=== PATIENT | female | born 1955 | race Caucasian/White ===

== ENCOUNTER 2023-01-20 16:00 | Inpatient (IN) | payer MEDICARE, OTHER ==
[~2023-01-20] VITALS: Ht 170.2 cm; Wt 63.5 kg
[2023-01-20 17:35] LABS: BASOPHILS % (AUTO) 0.6 % (0.0-2.0); EOSINOPHILS # (AUTO) 0.4 K/uL (0.0-0.7); EOSINOPHILS % (AUTO) 7.6 % (0.0-6.0); HEMATOCRIT 31 % (33-45); LYMPHOCYTES # (AUTO) 1.4 K/uL (0.8-4.8); LYMPHOCYTES % (AUTO) 26.3 % (20.0-44.0); MEAN CORPUSCULAR HEMOGLOBIN 31 PG (26.0-33.0); MEAN CORPUSCULAR HGB CONC 33 g/dl (31.0-36.0); MEAN CORPUSCULAR VOLUME 94 fL (82-100); MONOCYTES # (AUTO) 0.4 K/uL (0.1-1.30); MONOCYTES % (AUTO) 7.7 % (2.0-12.0); NEUTROPHILS # (AUTO) 3.1 K/uL (1.8-8.9); NEUTROPHILS % (AUTO) 57.8 % (43.0-81.0); PLATELET COUNT (AUTO) 270 K/uL (150-450); RED BLOOD CELL COUNT(AUTO) 3.26 MIL/uL (4.0-5.2); RED CELL DISTRIBUTION WIDTH 14.6 % (11.5-15.0); WHITE BLOOD COUNT (AUTO) 5.3 K/uL (4.3-11.0)
[2023-01-20 18:01] LABS: ALANINE AMINOTRANSFERASE 26 U/L (12-78); ALBUMIN 2.9 g/dL (3.4-5.0); ALCOHOL, BLOOD < 3 mg/dL (0-10); ALKALINE PHOSPHATASE 93 U/L (46-116); ASPARTATE AMINOTRANSFERASE 28 U/L (15-37); BILIRUBIN,TOTAL 0.1 mg/dL (0.2-1.0); CALCIUM, SERUM 9.2 mg/dL (8.5-10.1); CARBON DIOXIDE 30 mmol/L (21-32); CHLORIDE 101 mmol/L (98-107); CREATININE 0.8 mg/dL (0.6-1.3); GLUCOSE 91 mg/dL (74-106); POTASSIUM 4.2 mmol/L (3.5-5.1); SODIUM SERUM 137 mmol/L (136-145); TOTAL PROTEIN, SERUM 6.7 g/dL (6.4-8.2); UREA NITROGEN, BLOOD 27 mg/dL (7-18)
[2023-01-20 18:05] LABS: SALICYLATE 2.6 mg/dL (2.8-20.0)
[2023-01-20 18:06] LABS: ACETAMINOPHEN 0 ug/ml (10-30)
[2023-01-20 18:06] LABS: APPEARANCE,URINE CLEAR (CLEAR); BILIRUBIN,URINE NEGATIVE (NEGATIVE); BLOOD, URINE NEGATIVE Ery/uL (NEGATIVE); COLOR,URINE YELLOW (YELLOW); KETONES,URINE NEGATIVE (NEGATIVE); LEUKOCYTE ESTERASE ,URINE NEGATIVE (NEGATIVE); NITRITE, URINE NEGATIVE (NEGATIVE); PROTEIN,URINE NEGATIVE (NEGATIVE); UGLUCOSE NEGATIVE (NEGATIVE); UROBILINOGEN,URINE 0.2 EU/dL (0.2)
[2023-01-20 18:38] LABS: AMPHETAMINE, URINE NEGATIVE (NEGATIVE); BARBITURATE, URINE NEGATIVE (NEGATIVE); BENZODIAZEPINE, URINE NEGATIVE (NEGATIVE); CANNABINOID, URINE NEGATIVE (NEGATIVE); COCCAINE, URINE NEGATIVE (NEGATIVE); OPIATE, URINE NEGATIVE (NEGATIVE); PHENCYCLIDINE SCREEN,URINE NEGATIVE (NEGATIVE)
[2023-01-20] MEDS ORDERED: OLANZAPINE 5 MG TABLET ONE (21:40)
[2023-01-20] MEDS ORDERED: OLANZAPINE ZYDIS 5 MG TAB.RAPDIS PO ONE (22:00)
[2023-01-21] MEDS ORDERED: MAG HYDROX/AL HYDROX/SIMETH 30 ML UDC PO PRN
[2023-01-21] MEDS ORDERED: BLOOD SUGAR DIAGNOSTIC 1 EACH STRIP IN ONE
[2023-01-21] MEDS ORDERED: MAGNESIUM HYDROXIDE 30 ML UDC PO PRN
[2023-01-21 00:35] VITALS: BP 119/76; TEMP 98; O2SAT 98
[2023-01-21] MEDS ORDERED: MIRT-90 PO (01:42)
[2023-01-21] MEDS ORDERED: ASPI-1169 PO (01:42)
[2023-01-21] MEDS ORDERED: PANT40TA49 PO (01:42)
[2023-01-21] MEDS ORDERED: POLY15DR31 EACHEYE (01:42)
[2023-01-21] MEDS ORDERED: QUET50TA PO (01:42)
[2023-01-21] MEDS ORDERED: ATOR10TA PO (01:42)
[2023-01-21] MEDS ORDERED: TEMA15CA5 PO (01:42)
[2023-01-21] MEDS ORDERED: MULT-594 PO (01:42)
[2023-01-21 08:00] VITALS: BP 110/64; TEMP 97.8; O2SAT 97
[2023-01-21] MEDS ORDERED: CYAN-51 PO (08:00)
[2023-01-21] MEDS ORDERED: LORA-259 PO (08:00)
[2023-01-21 08:12] LABS: CHOLESTEROL 144 mg/dL (<200); HDL CHOLESTEROL 64 mg/dL (40-60); LDL 70 mg/dL (0-99); TRIGLYCERIDES 28 mg/dL (30-150)
[2023-01-21 08:17] LABS: ALBUMIN 2.6 g/dL (3.4-5.0); BILIRUBIN,TOTAL 0.2 mg/dL (0.2-1.0); CALCIUM, SERUM 8.9 mg/dL (8.5-10.1); CREATININE 0.7 mg/dL (0.6-1.3); POTASSIUM 3.7 mmol/L (3.5-5.1); TOTAL PROTEIN, SERUM 6.2 g/dL (6.4-8.2)
[2023-01-21] MEDS: QUETIAPINE FUMARATE 100 MG TABLET PO SCH ×2 (08:37→17:25)
[2023-01-21] MEDS: clonazePAM 0.5 MG TABLET PO PRN (12:30)
[2023-01-21 16:00] VITALS: BP 103/69; TEMP 98.1; O2SAT 98
[2023-01-21] MEDS: oxyCODONE IR immediate release 5 MG PO PRN (18:58)
[2023-01-21 20:11] VITALS: BP 100/62; TEMP 98.8; O2SAT 97
[2023-01-21] MEDS: MIRTAZAPINE 15 MG TABLET PO SCH (21:28)
[2023-01-21] MEDS: TEMAZEPAM 7.5 MG CAPSULE PO PRN (21:56)
[2023-01-22] MEDS: PANTOPRAZOLE 40 MG TABLET.DR PO SCH (07:50)
[2023-01-22 08:00] VITALS: BP 125/76; TEMP 98; O2SAT 97
[2023-01-22] MEDS: MULTIVITAMINS,THERAGRAN 1 UDTAB TABLET PO SCH (08:25)
[2023-01-22] MEDS: CYANOCOBALAMIN 500 MCG TABLET PO SCH (08:26)
[2023-01-22] MEDS: QUETIAPINE FUMARATE 100 MG TABLET PO SCH ×2 (08:26→16:23)
[2023-01-22] MEDS: ASPIRIN 81 MG TAB.CHEW PO SCH (08:26)
[2023-01-22] MEDS: POLYVINYL ALCOHOL 15 ML BOTTLE EACHEYE SCH (08:47)
[2023-01-22] MEDS: ATORVASTATIN 10 MG TABLET PO SCH (08:52)
[2023-01-22 16:00] VITALS: BP 100/68; TEMP 97.9; O2SAT 98
[2023-01-22] MEDS: oxyCODONE IR immediate release 5 MG PO PRN (19:39)
[2023-01-22 20:44] VITALS: BP 101/68; TEMP 98.2; O2SAT 100
[2023-01-22] MEDS: MIRTAZAPINE 15 MG TABLET PO SCH (21:24)
[2023-01-23 08:00] VITALS: BP 104/70; TEMP 98; O2SAT 100
[2023-01-23] MEDS: ATORVASTATIN 10 MG TABLET PO SCH (08:40)
[2023-01-23] MEDS: QUETIAPINE FUMARATE 100 MG TABLET PO SCH ×2 (08:40→16:05)
[2023-01-23] MEDS: MULTIVITAMINS,THERAGRAN 1 UDTAB TABLET PO SCH (08:40)
[2023-01-23] MEDS: ASPIRIN 81 MG TAB.CHEW PO SCH (08:40)
[2023-01-23] MEDS: PANTOPRAZOLE 40 MG TABLET.DR PO SCH (08:40)
[2023-01-23] MEDS: CYANOCOBALAMIN 500 MCG TABLET PO SCH (08:41)
[2023-01-23] MEDS: POLYVINYL ALCOHOL 15 ML BOTTLE EACHEYE SCH ×2 (08:41→08:49)
[2023-01-23 16:00] VITALS: BP 109/66; TEMP 98.1; O2SAT 98
[2023-01-23] MEDS ORDERED: HALOPERIDOL LACTATE INJ 5 MG/ML VIAL IM ONE (18:00)
[2023-01-23] MEDS ORDERED: LORAZEPAM INJ 2 MG/ML VIAL IV ONE (18:00)
[2023-01-23] MEDS ORDERED: diphenhydrAMINE HCL 50 MG/ML VIAL IV ONE (18:00)
[2023-01-23] MEDS: MIRTAZAPINE 15 MG TABLET PO SCH (21:14)
[2023-01-23] MEDS: TEMAZEPAM 7.5 MG CAPSULE PO PRN (21:50)
[2023-01-24 08:00] VITALS: BP 118/71; TEMP 97.8; O2SAT 95
[2023-01-24] MEDS: PANTOPRAZOLE 40 MG TABLET.DR PO SCH (08:00)
[2023-01-24] MEDS: NICOTINE PATCH (14MG) 14 MG PATCH.TD24 TD SCH (08:47)
[2023-01-24] MEDS: ATORVASTATIN 10 MG TABLET PO SCH (08:47)
[2023-01-24] MEDS: ASPIRIN 81 MG TAB.CHEW PO SCH (08:47)
[2023-01-24] MEDS: CYANOCOBALAMIN 500 MCG TABLET PO SCH (08:47)
[2023-01-24] MEDS: QUETIAPINE FUMARATE 100 MG TABLET PO SCH ×2 (08:47→16:31)
[2023-01-24] MEDS: MULTIVITAMINS,THERAGRAN 1 UDTAB TABLET PO SCH (08:48)
[2023-01-24] MEDS: POLYVINYL ALCOHOL 15 ML BOTTLE EACHEYE SCH (08:49)
[2023-01-24] MEDS: oxyCODONE IR immediate release 5 MG PO PRN ×2 (08:55→18:53)
[2023-01-24] MEDS: NEOMY SULF/BACITRAC ZN/POLY 15 GM TUBE TP SCH (11:24)
[2023-01-24] MEDS: ACETAMINOPHEN 325 MG TABLET PO PRN (14:39)
[2023-01-24 16:07] VITALS: BP 95/64; TEMP 97.8; O2SAT 96
[2023-01-24] MEDS: TEMAZEPAM 7.5 MG CAPSULE PO PRN (21:32)
[2023-01-24] MEDS: MIRTAZAPINE 15 MG TABLET PO SCH (21:32)
[2023-01-24 21:35] VITALS: BP 90/58; TEMP 98.2; O2SAT 96
[2023-01-25 08:00] VITALS: BP 110/69; TEMP 97.9; O2SAT 100
[2023-01-25] MEDS: NICOTINE PATCH (14MG) 14 MG PATCH.TD24 TD SCH (09:00)
[2023-01-25] MEDS: ATORVASTATIN 10 MG TABLET PO SCH (09:25)
[2023-01-25] MEDS: MULTIVITAMINS,THERAGRAN 1 UDTAB TABLET PO SCH (09:25)
[2023-01-25] MEDS: oxyCODONE IR immediate release 5 MG PO PRN ×2 (09:25→20:20)
[2023-01-25] MEDS: ASPIRIN 81 MG TAB.CHEW PO SCH (09:25)
[2023-01-25] MEDS: PANTOPRAZOLE 40 MG TABLET.DR PO SCH (09:25)
[2023-01-25] MEDS: CYANOCOBALAMIN 500 MCG TABLET PO SCH (09:26)
[2023-01-25] MEDS: QUETIAPINE FUMARATE 100 MG TABLET PO SCH ×2 (09:26→17:35)
[2023-01-25] MEDS: POLYVINYL ALCOHOL 15 ML BOTTLE EACHEYE SCH (09:29)
[2023-01-25] MEDS: NEOMY SULF/BACITRAC ZN/POLY 15 GM TUBE TP SCH (09:37)
[2023-01-25] MEDS: clonazePAM 0.5 MG TABLET PO PRN (11:57)
[2023-01-25 16:00] VITALS: BP 106/69; TEMP 97.8; O2SAT 98
[2023-01-25 20:23] VITALS: BP 104/65; TEMP 99; O2SAT 97
[2023-01-25 20:34] VITALS: BP 123/65; TEMP 98.4; O2SAT 96
[2023-01-25] MEDS: MIRTAZAPINE 15 MG TABLET PO SCH (21:08)
[2023-01-26] MEDS: TEMAZEPAM 7.5 MG CAPSULE PO PRN (01:46)
[2023-01-26] MEDS: PANTOPRAZOLE 40 MG TABLET.DR PO SCH (07:46)
[2023-01-26 08:00] VITALS: BP 106/59; TEMP 97.9; O2SAT 100
[2023-01-26] MEDS: NICOTINE PATCH (14MG) 14 MG PATCH.TD24 TD SCH (09:00)
[2023-01-26] MEDS: NEOMY SULF/BACITRAC ZN/POLY 15 GM TUBE TP SCH ×2 (09:00→09:20)
[2023-01-26] MEDS: POLYVINYL ALCOHOL 15 ML BOTTLE EACHEYE SCH ×2 (09:00→09:19)
[2023-01-26] MEDS: QUETIAPINE FUMARATE 100 MG TABLET PO SCH ×2 (09:15→17:42)
[2023-01-26] MEDS: ASPIRIN 81 MG TAB.CHEW PO SCH (09:15)
[2023-01-26] MEDS: CYANOCOBALAMIN 500 MCG TABLET PO SCH (09:15)
[2023-01-26] MEDS: MULTIVITAMINS,THERAGRAN 1 UDTAB TABLET PO SCH (09:16)
[2023-01-26] MEDS: ATORVASTATIN 10 MG TABLET PO SCH (09:16)
[2023-01-26 20:00] VITALS: BP 122/70; TEMP 98.1; O2SAT 98
[2023-01-26] MEDS: MIRTAZAPINE 15 MG TABLET PO SCH (21:42)
[2023-01-27] MEDS: PANTOPRAZOLE 40 MG TABLET.DR PO SCH (07:50)
[2023-01-27 08:00] VITALS: BP 109/69; TEMP 97.8; O2SAT 98
[2023-01-27] MEDS: NICOTINE PATCH (14MG) 14 MG PATCH.TD24 TD SCH (08:57)
[2023-01-27] MEDS: ATORVASTATIN 10 MG TABLET PO SCH (08:57)
[2023-01-27] MEDS: MULTIVITAMINS,THERAGRAN 1 UDTAB TABLET PO SCH (08:57)
[2023-01-27] MEDS: QUETIAPINE FUMARATE 100 MG TABLET PO SCH ×4 (08:57→17:54)
[2023-01-27] MEDS: NEOMY SULF/BACITRAC ZN/POLY 15 GM TUBE TP SCH (08:57)
[2023-01-27] MEDS: ASPIRIN 81 MG TAB.CHEW PO SCH (08:57)
[2023-01-27] MEDS: CYANOCOBALAMIN 500 MCG TABLET PO SCH (08:57)
[2023-01-27] MEDS: POLYVINYL ALCOHOL 15 ML BOTTLE EACHEYE SCH (08:57)
[2023-01-27 16:00] VITALS: BP 105/63; TEMP 98; O2SAT 99
[2023-01-27] MEDS: ACETAMINOPHEN 325 MG TABLET PO PRN (16:15)
[2023-01-27 20:00] VITALS: BP 96/63; TEMP 97.9; O2SAT 96
[2023-01-27] MEDS: MIRTAZAPINE 15 MG TABLET PO SCH (21:43)
[2023-01-28 08:00] VITALS: BP 107/70; TEMP 97.7; O2SAT 100
[2023-01-28] MEDS: ATORVASTATIN 10 MG TABLET PO SCH (08:39)
[2023-01-28] MEDS: PANTOPRAZOLE 40 MG TABLET.DR PO SCH (08:39)
[2023-01-28] MEDS: ENSURE ENLIVE 237 ML LIQUID (VANILLA) PO SCH (08:39)
[2023-01-28] MEDS: CYANOCOBALAMIN 500 MCG TABLET PO SCH (08:39)
[2023-01-28] MEDS: NICOTINE PATCH (14MG) 14 MG PATCH.TD24 TD SCH (08:39)
[2023-01-28] MEDS: ASPIRIN 81 MG TAB.CHEW PO SCH (08:39)
[2023-01-28] MEDS: MULTIVITAMINS,THERAGRAN 1 UDTAB TABLET PO SCH (08:39)
[2023-01-28] MEDS: QUETIAPINE FUMARATE 100 MG TABLET PO SCH ×3 (08:39→16:26)
[2023-01-28] MEDS: NEOMY SULF/BACITRAC ZN/POLY 15 GM TUBE TP SCH (08:40)
[2023-01-28] MEDS: POLYVINYL ALCOHOL 15 ML BOTTLE EACHEYE SCH (08:40)
[2023-01-28] MEDS: oxyCODONE IR immediate release 5 MG PO PRN (08:44)
[2023-01-28 16:00] VITALS: BP 106/67; TEMP 98; O2SAT 98
[2023-01-28 20:00] VITALS: BP 103/72; TEMP 97.5; O2SAT 95
[2023-01-28] MEDS: MIRTAZAPINE 15 MG TABLET PO SCH (21:41)
[2023-01-29 08:00] VITALS: BP 115/58; TEMP 98.1; O2SAT 97
[2023-01-29] MEDS: PANTOPRAZOLE 40 MG TABLET.DR PO SCH (08:22)
[2023-01-29] MEDS: ENSURE ENLIVE 237 ML LIQUID (VANILLA) PO SCH (08:22)
[2023-01-29] MEDS: CYANOCOBALAMIN 500 MCG TABLET PO SCH (08:22)
[2023-01-29] MEDS: ASPIRIN 81 MG TAB.CHEW PO SCH (08:22)
[2023-01-29] MEDS: ATORVASTATIN 10 MG TABLET PO SCH (08:23)
[2023-01-29] MEDS: MULTIVITAMINS,THERAGRAN 1 UDTAB TABLET PO SCH (08:23)
[2023-01-29] MEDS: NICOTINE PATCH (14MG) 14 MG PATCH.TD24 TD SCH ×2 (08:23→09:00)
[2023-01-29] MEDS: QUETIAPINE FUMARATE 100 MG TABLET PO SCH ×3 (08:23→16:33)
[2023-01-29] MEDS: NEOMY SULF/BACITRAC ZN/POLY 15 GM TUBE TP SCH ×2 (09:00→09:17)
[2023-01-29] MEDS: POLYVINYL ALCOHOL 15 ML BOTTLE EACHEYE SCH ×2 (09:00→09:16)
[2023-01-29 16:00] VITALS: BP 102/61; TEMP 98.3; O2SAT 100
[2023-01-29 20:33] VITALS: BP 107/61; TEMP 98.6; O2SAT 100
[2023-01-29] MEDS: MIRTAZAPINE 15 MG TABLET PO SCH (21:08)
[2023-01-29] MEDS: oxyCODONE IR immediate release 5 MG PO PRN (21:10)
[2023-01-29] MEDS: TEMAZEPAM 7.5 MG CAPSULE PO PRN (23:06)
[2023-01-30 08:00] VITALS: BP 110/71; TEMP 97.9; O2SAT 98
[2023-01-30] MEDS: ENSURE ENLIVE 237 ML LIQUID (VANILLA) PO SCH (08:20)
[2023-01-30] MEDS: PANTOPRAZOLE 40 MG TABLET.DR PO SCH (08:20)
[2023-01-30] MEDS: ASPIRIN 81 MG TAB.CHEW PO SCH (08:32)
[2023-01-30] MEDS: NEOMY SULF/BACITRAC ZN/POLY 15 GM TUBE TP SCH (08:32)
[2023-01-30] MEDS: CYANOCOBALAMIN 500 MCG TABLET PO SCH (08:32)
[2023-01-30] MEDS: MULTIVITAMINS,THERAGRAN 1 UDTAB TABLET PO SCH (08:32)
[2023-01-30] MEDS: QUETIAPINE FUMARATE 100 MG TABLET PO SCH ×2 (08:32→13:57)
[2023-01-30] MEDS: NICOTINE PATCH (14MG) 14 MG PATCH.TD24 TD SCH (08:32)
[2023-01-30] MEDS: ATORVASTATIN 10 MG TABLET PO SCH (08:32)
[2023-01-30] MEDS: POLYVINYL ALCOHOL 15 ML BOTTLE EACHEYE SCH (08:33)
[2023-01-30] MEDS: oxyCODONE IR immediate release 5 MG PO PRN (10:15)
== END 2023-01-30 14:30 | DRG 885 ==
LOC: ER 16:00 → GPS 22:33 → UNDODISIN 01-26 14:43
PROVIDERS: ADMIT Psychiatry & Neurology Psychiatry; ATTEND Nurse Practitioner Acute Care
DX: F39 Unspecified mood [affective] disorder (principal); E44.0 Moderate protein-calorie malnutrition; F29 Unspecified psychosis not due to a substance or known physiological condition; D64.9 Anemia, unspecified; E78.5 Hyperlipidemia, unspecified; E88.09 Other disorders of plasma-protein metabolism, not elsewhere classified; F20.9 Schizophrenia, unspecified; I10 Essential (primary) hypertension; F41.9 Anxiety disorder, unspecified; F31.9 Bipolar disorder, unspecified; Z79.899 Other long term (current) drug therapy; Z20.822 Contact with and (suspected) exposure to COVID-19; Z73.6 Limitation of activities due to disability; Z68.21 Body mass index [BMI] 21.0-21.9, adult; M25.571 Pain in right ankle and joints of right foot; Z59.00 Homelessness unspecified
CPT/HCPCS: 36415; 73610-TC; 80048-TC; 80053-TC; 80061-TC; 80076-TC; 82962-TC; 85025-TC; 87081-TC; 97112-TC; 97116-TC; 97530-TC; C9803; G0480

== ENCOUNTER 2024-11-07 13:26 | Inpatient (IN) | payer MEDICARE, OTHER ==
[~2024-11-07] VITALS: Ht 157.5 cm; Wt 74.8 kg
[~2024-11-07 13:26] MED LIST: ASPI-1169 PO; ATOR10TA PO; CYAN-51 PO; LORA-259 PO; MIRT-90 PO; MULT-594 PO; PANT40TA49 PO; POLY15DR31 EACHEYE; QUET50TA PO; TEMA15CA5 PO
[2024-11-07 14:05] LABS: PLATELET COUNT (AUTO) 240 K/uL (150-450); RED BLOOD CELL COUNT(AUTO) 3.95 MIL/uL (4.0-5.2); RED CELL DISTRIBUTION WIDTH 17.8 % (11.5-15.0); WHITE BLOOD COUNT (AUTO) 10.6 K/uL (4.3-11.0)
[2024-11-07 14:10] LABS: CALCIUM, SERUM 8.8 mg/dL (8.5-10.1); CREATININE 0.9 mg/dL (0.6-1.3); SODIUM SERUM 131 mmol/L (136-145); UREA NITROGEN, BLOOD 14 mg/dL (7-18)
[2024-11-07 14:15] LABS: ALCOHOL, BLOOD < 3 mg/dL (0-10); ASPARTATE AMINOTRANSFERASE 13 U/L (15-37); TOTAL PROTEIN, SERUM 7.1 g/dL (6.4-8.2)
[2024-11-07 14:22] LABS: APPEARANCE,URINE CLEAR (CLEAR); BLOOD, URINE NEGATIVE Ery/uL (NEGATIVE); LEUKOCYTE ESTERASE ,URINE NEGATIVE (NEGATIVE); NITRITE, URINE NEGATIVE (NEGATIVE); UGLUCOSE NEGATIVE (NEGATIVE)
[2024-11-07 14:28] LABS: AMPHETAMINE, URINE NEGATIVE (NEGATIVE); BARBITURATE, URINE NEGATIVE (NEGATIVE); BENZODIAZEPINE, URINE NEGATIVE (NEGATIVE); CANNABINOID, URINE NEGATIVE (NEGATIVE); COCCAINE, URINE NEGATIVE (NEGATIVE); OPIATE, URINE NEGATIVE (NEGATIVE)
[2024-11-07] MEDS ORDERED: SENN8.6T19 PO (14:37)
[2024-11-07] MEDS ORDERED: PANT40TA2 PO (14:37)
[2024-11-07] MEDS ORDERED: ACET-868 PO (14:37)
[2024-11-07] MEDS ORDERED: OLAN20TA3 PO (14:37)
[2024-11-07] MEDS ORDERED: POLY17PO4 PO (14:37)
[2024-11-07] MEDS ORDERED: NA P133E RC (14:37)
[2024-11-07] MEDS ORDERED: ATOR40TA PO (14:37)
[2024-11-07] MEDS ORDERED: MULT-225 PO (14:37)
[2024-11-07] MEDS ORDERED: LORA-258 PO (14:37)
[2024-11-07] MEDS ORDERED: DOCU100C36 PO (14:37)
[2024-11-07] MEDS ORDERED: BISA10SU11 RC (14:37)
[2024-11-07] MEDS ORDERED: MAGN400O6 PO (14:37)
[2024-11-07] MEDS ORDERED: DIVA-76 PO (14:37)
[2024-11-07] MEDS ORDERED: SERT25TA PO (14:37)
[2024-11-07] MEDS ORDERED: MAGNESIUM HYDROXIDE 30 ML UDC PO PRN ×2 (15:00→17:30)
[2024-11-07] MEDS ORDERED: ZOLPIDEM TARTRATE 5 MG TABLET PO PRN (15:00)
[2024-11-07] MEDS ORDERED: QUETIAPINE FUMARATE 25 MG TABLET PO PRN (15:00)
[2024-11-07] MEDS: BLOOD SUGAR DIAGNOSTIC 1 EACH STRIP IN ONE (15:31)
[2024-11-07 16:00] VITALS: BP 123/78; TEMP 98.1; O2SAT 94
[2024-11-07 16:21] LABS: BASOPHILS % (MANUAL) 0 % (0.0-2.0); EOSINOPHILS % (MANUAL) 1 % (0-4); LYMPHOCYTES % (MANUAL) 20 % (16-48); MONOCYTES % (MANUAL) 4 % (0-11.0); NEUTROPHILS % (MANUAL) 75 (42-76); PLATELET ESTIMATE ADEQUATE
[2024-11-07] MEDS ORDERED: NA PHOS,M-B/NA PHOS,DI-BA 1 EA ENEMA RC PRN (17:30)
[2024-11-07] MEDS ORDERED: ACETAMINOPHEN 325 MG TABLET PO PRN (17:30)
[2024-11-07] MEDS ORDERED: BISACODYL SUPP (10 MG) 10 MG/SUPP.RECT SUPP.RECT RC PRN (17:30)
[2024-11-07 20:08] VITALS: BP 93/55; TEMP 98.4; O2SAT 96
[2024-11-07] MEDS: ACETAMINOPHEN 325 MG TABLET PO PRN (20:13)
[2024-11-07] MEDS: ATORVASTATIN 40 MG TABLET PO SCH (21:05)
[2024-11-08 08:00] VITALS: BP 100/65; TEMP 98; O2SAT 98
[2024-11-08 08:28] LABS: LDL 83 mg/dL (0-99)
[2024-11-08 08:36] LABS: ASPARTATE AMINOTRANSFERASE 13.0 U/L (15-37); CALCIUM, SERUM 9.6 mg/dL (8.5-10.1); CREATININE 0.6 mg/dL (0.6-1.3); SODIUM SERUM 138.0 mmol/L (136-145); TOTAL PROTEIN, SERUM 7.3 g/dL (6.4-8.2); UREA NITROGEN, BLOOD 21.0 mg/dL (7-18)
[2024-11-08] MEDS: DOCUSATE SODIUM 100 MG CAPSULE PO SCH (09:34)
[2024-11-08] MEDS: MULTIVITAMINS,THERAGRAN 1 UDTAB TABLET PO SCH (09:34)
[2024-11-08] MEDS: SENNOSIDES 8.6 MG TABLET PO SCH (09:35)
[2024-11-08] MEDS: PANTOPRAZOLE 40 MG TABLET.DR PO SCH (09:35)
[2024-11-08] MEDS: MAG HYDROX/AL HYDROX/SIMETH 30 ML UDC PO PRN (11:24)
[2024-11-08 16:00] VITALS: BP 110/74; TEMP 98.2; O2SAT 94
[2024-11-08 20:47] VITALS: BP 114/73; TEMP 98.2; O2SAT 96
[2024-11-08] MEDS: LITHIUM CARBONATE 150 MG CAPSULE PO SCH (21:08)
[2024-11-08] MEDS: OLANZAPINE 5 MG TABLET PO SCH (21:08)
[2024-11-09 08:00] VITALS: BP 124/78; TEMP 97.9; O2SAT 96
[2024-11-09] MEDS: POLYETHYLENE GLYCOL 3350 17 GM POWD.PACK PO PRN (09:20)
[2024-11-09 16:00] VITALS: BP 93/65; TEMP 98; O2SAT 94
[2024-11-09 21:08] VITALS: BP 116/70; TEMP 98; O2SAT 95
[2024-11-10 08:00] VITALS: BP 97/62; TEMP 97.9; O2SAT 95
[2024-11-10 16:00] VITALS: BP 105/70; TEMP 97.9; O2SAT 93
[2024-11-10 20:38] VITALS: BP 111/64; TEMP 97.7; O2SAT 95
[2024-11-11 08:00] VITALS: BP 97/63; TEMP 97.9; O2SAT 97
[2024-11-11 16:00] VITALS: BP 122/69; TEMP 97.9; O2SAT 96
[2024-11-11] MEDS: BACITRACIN ZINC OINT (15 GM) 15 GM TUBE TP SCH (17:20)
[2024-11-11 20:00] VITALS: BP 103/67; TEMP 97.9; O2SAT 97
[2024-11-11 20:13] VITALS: BP 103/67; TEMP 97.9; O2SAT 97
[2024-11-11] MEDS: OLANZAPINE 5 MG TABLET PO SCH (20:40)
[2024-11-12 08:00] VITALS: BP 110/67; TEMP 97.9; O2SAT 94
[2024-11-12 16:00] VITALS: BP 109/77; TEMP 98.2; O2SAT 94
[2024-11-12 20:00] VITALS: BP 95/67; TEMP 97.7; O2SAT 97
[2024-11-12] MEDS: LITHIUM CARBONATE 150 MG CAPSULE PO SCH (20:06)
[2024-11-12 20:27] VITALS: BP 95/67; TEMP 97.7; O2SAT 97
[2024-11-13 08:00] VITALS: BP 111/84; TEMP 98.7; O2SAT 98
[2024-11-13] MEDS: DICLOFENAC TOPICAL 100 GM TUBE TP PRN (13:30)
[2024-11-13 16:00] VITALS: BP 103/56; TEMP 98.6; O2SAT 97
[2024-11-13] MEDS ORDERED: TRAMADOL HCL 50 MG TABLET PO PRN (17:30)
[2024-11-13 20:18] VITALS: BP 130/63; TEMP 98.5; O2SAT 97
[2024-11-14 08:00] VITALS: BP 111/69; TEMP 98.2; O2SAT 93
[2024-11-14 16:00] VITALS: BP 95/62; TEMP 97.7; O2SAT 92
[2024-11-14] MEDS: OLANZAPINE 5 MG TABLET PO SCH (20:41)
[2024-11-14 21:00] VITALS: BP 112/67; TEMP 98; O2SAT 97
[2024-11-15 08:00] VITALS: BP 106/66; TEMP 98.1; O2SAT 95
[2024-11-15 16:05] VITALS: BP 110/66; TEMP 97.8; O2SAT 93
[2024-11-15 21:16] VITALS: BP 106/68; TEMP 98.1; O2SAT 96
[2024-11-16 08:17] VITALS: BP 116/88; TEMP 97.8; O2SAT 97
[2024-11-16 16:05] VITALS: BP 95/71; TEMP 98.2; O2SAT 97
[2024-11-16 21:06] VITALS: BP 110/65; TEMP 97.9; O2SAT 96
[2024-11-17 08:00] VITALS: BP 127/88; TEMP 98.1; O2SAT 98
[2024-11-17] MEDS: SIMETHICONE 80 MG TAB.CHEW PO PRN (13:58)
[2024-11-17] MEDS ORDERED: SIMETHICONE/SOD BICARB/CIT AC 1 EACH GRAN.EF.PK PO PRN (14:00)
[2024-11-17 16:00] VITALS: BP 106/68; TEMP 97.6; O2SAT 95
[2024-11-17 20:46] VITALS: BP 107/55; TEMP 98.6; O2SAT 96
[2024-11-18 07:39] LABS: PLATELET COUNT (AUTO) 322 K/uL (150-450); RED BLOOD CELL COUNT(AUTO) 3.98 MIL/uL (4.0-5.2); RED CELL DISTRIBUTION WIDTH 17.5 % (11.5-15.0); WHITE BLOOD COUNT (AUTO) 15.7 K/uL (4.3-11.0)
[2024-11-18 08:00] VITALS: BP 107/62; TEMP 98.6; O2SAT 92
[2024-11-18 08:03] LABS: ASPARTATE AMINOTRANSFERASE 12.0 U/L (15-37); CALCIUM, SERUM 9.3 mg/dL (8.5-10.1); CREATININE 0.8 mg/dL (0.6-1.3); PHOSPHORUS 3.5 mg/dL (2.5-4.9); SODIUM SERUM 142.0 mmol/L (136-145); TOTAL PROTEIN, SERUM 7.3 g/dL (6.4-8.2); UREA NITROGEN, BLOOD 23.0 mg/dL (7-18)
[2024-11-18 16:00] VITALS: BP 116/71; TEMP 98.1; O2SAT 95
[2024-11-18 20:01] VITALS: BP 104/64; TEMP 98; O2SAT 94
[2024-11-18] MEDS: LITHIUM CARBONATE 150 MG CAPSULE PO SCH (20:56)
[2024-11-19 07:04] LABS: APPEARANCE,URINE CLEAR (CLEAR); BLOOD, URINE TRACE-INTA Ery/uL (NEGATIVE); LEUKOCYTE ESTERASE ,URINE NEGATIVE (NEGATIVE); NITRITE, URINE NEGATIVE (NEGATIVE); UGLUCOSE NEGATIVE (NEGATIVE)
[2024-11-19 07:19] LABS: ADD URINE CULTURE NO
[2024-11-19 07:20] LABS: SQUAMOUS EPITHELIAL CELL,UR 0-2 /HPF (None Seen)
[2024-11-19 07:39] LABS: PLATELET COUNT (AUTO) 329 K/uL (150-450); RED BLOOD CELL COUNT(AUTO) 3.98 MIL/uL (4.0-5.2); RED CELL DISTRIBUTION WIDTH 17.7 % (11.5-15.0); WHITE BLOOD COUNT (AUTO) 10.6 K/uL (4.3-11.0)
[2024-11-19 08:00] VITALS: BP 108/78; TEMP 98; O2SAT 97
[2024-11-19 08:17] LABS: CALCIUM, SERUM 9.6 mg/dL (8.5-10.1); CREATININE 0.9 mg/dL (0.6-1.3); PHOSPHORUS 3.9 mg/dL (2.5-4.9); SODIUM SERUM 143.0 mmol/L (136-145); UREA NITROGEN, BLOOD 20.0 mg/dL (7-18)
[2024-11-19] MEDS: LITHIUM CARBONATE 150 MG CAPSULE PO SCH (08:42)
[2024-11-19 16:05] VITALS: BP 106/71; TEMP 98; O2SAT 98
[2024-11-19 20:23] VITALS: BP 115/70; TEMP 98.2; O2SAT 99
[2024-11-19 22:49] LABS: IRON, SERUM 21 ug/dl (50-175)
[2024-11-20 08:00] VITALS: BP 148/70; TEMP 98.2; O2SAT 99
[2024-11-20 16:00] VITALS: BP 97/67; TEMP 98.1; O2SAT 95
[2024-11-20 19:54] VITALS: BP 106/66; TEMP 97.9; O2SAT 96
[2024-11-21] MEDS: TEMAZEPAM 7.5 MG CAPSULE PO PRN (00:45)
[2024-11-21 08:00] VITALS: BP 106/70; TEMP 98.6; O2SAT 95
[2024-11-21 16:00] VITALS: BP 108/61; TEMP 98.2; O2SAT 96
== END 2024-11-21 17:15 | DRG 885 ==
LOC: ER 13:28 → GPS 14:46
PROVIDERS: ADMIT Psychiatry & Neurology Psychiatry; ATTEND Nurse Practitioner Acute Care
DX: F25.9 Schizoaffective disorder, unspecified (principal); E87.1 Hypo-osmolality and hyponatremia; E44.1 Mild protein-calorie malnutrition; D68.69 Other thrombophilia; F29 Unspecified psychosis not due to a substance or known physiological condition; F41.9 Anxiety disorder, unspecified; K21.9 Gastro-esophageal reflux disease without esophagitis; D50.9 Iron deficiency anemia, unspecified; E03.9 Hypothyroidism, unspecified; E78.5 Hyperlipidemia, unspecified; E88.09 Other disorders of plasma-protein metabolism, not elsewhere classified; F31.9 Bipolar disorder, unspecified; I10 Essential (primary) hypertension; Z87.891 Personal history of nicotine dependence; F10.21 Alcohol dependence, in remission; Z20.822 Contact with and (suspected) exposure to COVID-19; F39 Unspecified mood [affective] disorder; Z73.6 Limitation of activities due to disability; R73.9 Hyperglycemia, unspecified; E86.1 Hypovolemia; S01.20XA Unspecified open wound of nose, initial encounter; X58.XXXA Exposure to other specified factors, initial encounter; Y93.9 Activity, unspecified; Y92.129 Unspecified place in nursing home as the place of occurrence of the external cause; E66.9 Obesity, unspecified; Z68.30 Body mass index [BMI] 30.0-30.9, adult
CPT/HCPCS: 36415; 71045-TC; 73030-TC; 73560-TC; 80048-TC; 80053-TC; 80061-TC; 80076-TC; 80178-TC; 81001; 82728-TC; 82962-TC; 83540-TC; 83735-TC; 84100-TC; 85025-TC; 85027-TC; G0480

== ENCOUNTER 2024-12-20 19:45 | Emergency (ER) | payer MEDICARE, OTHER ==
[~2024-12-20] VITALS: Ht 170.2 cm; Wt 88.5 kg
[~2024-12-20 19:45] MED LIST changes: +ACET-868 PO; -ASPI-1169 PO; -ATOR10TA PO; +ATOR40TA PO; +BISA10SU11 RC; -CYAN-51 PO; +DOCU100C36 PO; -LORA-259 PO; +MAGN400O6 PO; -MIRT-90 PO; +MULT-225 PO; -MULT-594 PO; +NA P133E RC; +PANT40TA2 PO; -PANT40TA49 PO; -POLY15DR31 EACHEYE; +POLY17PO4 PO; -QUET50TA PO; +SENN8.6T19 PO; -TEMA15CA5 PO
[2024-12-20 19:48] VITALS: TEMP 98.2
[2024-12-20 20:36] LABS: PLATELET COUNT (AUTO) 335 K/uL (150-450); RED BLOOD CELL COUNT(AUTO) 3.32 MIL/uL (4.0-5.2); RED CELL DISTRIBUTION WIDTH 16.9 % (11.5-15.0); WHITE BLOOD COUNT (AUTO) 16.7 K/uL (4.3-11.0)
[2024-12-20 20:44] LABS: CALCIUM, SERUM 9.3 mg/dL (8.5-10.1); CREATININE 1.2 mg/dL (0.6-1.3); SODIUM SERUM 139.0 mmol/L (136-145); UREA NITROGEN, BLOOD 16.0 mg/dL (7-18)
[2024-12-20 21:00] LABS: ASPARTATE AMINOTRANSFERASE 28.0 U/L (15-37); TOTAL PROTEIN, SERUM 6.8 g/dL (6.4-8.2)
[2024-12-20 21:02] LABS: ERYTHROCYTE SEDIMENTATION RATE 32 MM/HR (0-30)
[2024-12-20] MEDS ORDERED: VANCOMYCIN 1 GM /D5W 250 ML PB IV ONE (22:22)
[2024-12-20] MEDS ORDERED: PIPERACI/TAZO 3.375GM/D5W 50ML PB IV ONE (22:22)
[2024-12-20] MEDS: PIPERACILLIN /TAZOBACTAM 3.375 G in IV D5W 50 ML IV ONE (22:25)
[2024-12-20] MEDS: VANCOMYCIN 1 GM in IV D5W 250 ML IV ONE (22:55)
[2024-12-20 23:05] VITALS: BP 110/64; O2SAT 99
== END 2024-12-21 02:03 | disposition short-term general hospital (02) ==
LOC: ER 19:51
DX: S92.354A Nondisplaced fracture of fifth metatarsal bone, right foot, initial encounter for closed fracture (principal); M25.551 Pain in right hip; M25.552 Pain in left hip; R45.1 Restlessness and agitation; F31.9 Bipolar disorder, unspecified; I10 Essential (primary) hypertension; J18.9 Pneumonia, unspecified organism; Z79.899 Other long term (current) drug therapy; Z86.79 Personal history of other diseases of the circulatory system; Z20.822 Contact with and (suspected) exposure to COVID-19; Z86.59 Personal history of other mental and behavioral disorders; W18.39XA Other fall on same level, initial encounter; Y93.89 Activity, other specified; Y92.89 Other specified places as the place of occurrence of the external cause; Y99.8 Other external cause status
CPT/HCPCS: 99285; 96365; 71045; 87426; 96368; 93005; 72170; 85025; 87040; 83605; 85652; 36415; 80178; 80053; 86140; 73630; J3373; J2543